=== PATIENT | male | born 1970 | race African-American/Black ===

== ENCOUNTER 2016-11-13 15:02 | Emergency (ER) | payer BC ==
[~2016-11-13 15:02] MED LIST: BP MED PO; DIAZEPAM PO; FLEXERIL PO; FLEXERIL10 MG PO; HYDROCODON-ACE1 EAC4 PO; LORTAB 5/500 TA1 TA1 PO; PERCOCET10 PO; PRILOSEC PO; SKELAXIN PO; VICODIN 5/500 T1 TAB PO
== END 2016-11-13 16:33 | disposition home or self-care (01) ==
LOC: SED 15:02
DX: J40 Bronchitis, not specified as acute or chronic (principal); Z98.890 Other specified postprocedural states; Z88.6 Allergy status to analgesic agent
CPT/HCPCS: 87651; 99283